=== PATIENT | female | born 1990 | race African-American/Black ===

== ENCOUNTER 2016-07-14 17:44 | Emergency (ER) | payer MEDICAID ==
[~2016-07-14] VITALS: Ht 167.6 cm; Wt 123.0 kg
[~2016-07-14 17:44] MED LIST: AMLO10TA80 PO; HYDR25TA PO; IOHEXOL-350 100 ML BOTTLE ONE; SODIUM CHLORIDE 0.9% 10ML VIAL ONE
[2016-07-14] MEDS ORDERED: KETOROLAC 30MG/ML VIAL IV STA (18:11)
[2016-07-14] MEDS ORDERED: METOCLOPRAMIDE HCL 10MG/2ML VIAL IV ONE (18:15)
[2016-07-14] MEDS ORDERED: HYDROCHLOROTHIAZIDE 50MG TABLET PO ONE (18:45)
[2016-07-14 18:48] LABS: BASOPHILS % 0.8 % (0.0-2.0); DIFFERENTIAL COMMENT 0; HEMATOCRIT. 32.8 % (36.0-48.0); HEMOGLOBIN. 10.4 g/dL (12.0-16.0); LYMPHOCYTES % 29.3 % (20.0-50.0); MEAN CORPUSCULAR HEMOGLOBIN 22.7 pg (28.0-32.0); MEAN CORPUSCULAR HGB CONC 31.6 g/dL (31.0-37.0); MEAN CORPUSCULAR VOLUME 71.9 fL (81.0-99.0); MEAN PLATELET VOLUME 9.3 fl (7.4-10.4); MONOCYTES % 4.4 % (2.0-8.0); NEUTROPHILS % 63.5 % (40.0-76.0); PLATELET 352 x1000/uL (130-400); RED BLOOD CELL COUNT 4.56 mill/uL (4.2-5.4); RED CELL DISTRIBUTION WIDTH 15.4 % (11.6-14.6); WHITE BLOOD COUNT 8.3 x1000/uL (4.5-11.0)
[2016-07-14 19:00] VITALS: BP 165/82
[2016-07-14 19:01] LABS: ALANINE AMINOTRANSFERASE 36 IU/L (13-61); ALBUMIN 3.8 g/dL (3.4-5.0); ANION GAP 14; CALCIUM 9.2 mg/dL (8.5-10.1); CARBON DIOXIDE 24 mEq/L (21-32); CHLORIDE 108 mEq/L (98-107); INDEX HEMOLYSI 1 (1-3); INDEX ICTERIC 1 (1-4); INDEX LIPEMIC 1 (1-3); UREA NITROGEN BLOOD 11 mg/dL (7-21); eGFR > 60 mL/min (>60)
[2016-07-14] MEDS ORDERED: HYDROCHLOROTHIAZIDE 25MG TABLET PO NR (19:02)
[2016-07-14 19:25] LABS: HCG SCREEN NEGATIVE
== END 2016-07-14 21:00 | disposition home or self-care (01) ==
LOC: ER 18:05
DX: R06.00 Dyspnea, unspecified (principal); I10 Essential (primary) hypertension; F12.10 Cannabis abuse, uncomplicated; Z88.0 Allergy status to penicillin
CPT/HCPCS: 36415; 71010; 71275; 80053; 84703; 85025; 85379; 93005; 96374; 96375; 99285; A4216; J1885; J2765; Q9967; Z7610

== ENCOUNTER 2023-03-18 17:46 | Emergency (ER) | payer MEDICAID, OTHER ==
[~2023-03-18] VITALS: Ht 170.2 cm; Wt 127.0 kg
[~2023-03-18 17:46] MED LIST changes: -IOHEXOL-350 100 ML BOTTLE ONE; -SODIUM CHLORIDE 0.9% 10ML VIAL ONE
[2023-03-18 17:49] VITALS: BP 151/78; PULSE 115; RESP 14; TEMP 98.3; O2SAT 100
== END 2023-03-18 17:59 | disposition left against medical advice (07) ==
LOC: ER 17:46
DX: R07.89 Other chest pain (principal); F41.9 Anxiety disorder, unspecified; F12.10 Cannabis abuse, uncomplicated; I10 Essential (primary) hypertension; Z88.0 Allergy status to penicillin
CPT/HCPCS: 99283